=== PATIENT | female | born 1975 | race Hispanic/Latino ===

== ENCOUNTER → 2023-12-20 | Day surgery (SDC) | payer OTHER ==
[~2023-12-20] MED LIST: ACETAMINOPHEN 1000 MG/100 ML 100 ML IV ONE; BUPIVACAINE HCL 0.5% INJ 30 ML VIAL INJ ONE; DEXAMETHASONE SOD PHOS INJ 4 MG/ML SDV ONE; FENTANYL CITRATE/PF 100MCG/2 ML INJ ONE; KETOROLAC TROMETHAMINE 30 MG/ML VIAL ONE; LIDOCAINE HCL 2% LOCAL INJ 5 ML SDV VIAL INJ ONE; NEOSTIGMINE 1 MG/ML 10ML VIAL ONE; ONDANSETRON HCL INJ 2MG/ML 2ML 2 MG/ML VIAL ONE; PROPOFOL IV EMULSION 10 MG/ML 20 ML VIAL ONE; SEVOFLURANE INHAL SOLN 250 ML PEN BTL ONE
[2023-12-20] MEDS: LACTATED RINGER'S 1,000 ML ONE (06:41)
[2023-12-20 08:50] VITALS: TEMP 97
[2023-12-20 09:22] VITALS: BP 134/85; RESP 18; O2SAT 99
== END | disposition home or self-care (01) ==
LOC: OR 05:23
PROVIDERS: ATTEND Podiatrist Foot & Ankle Surgery
DX: M20.11 Hallux valgus (acquired), right foot (principal); K21.9 Gastro-esophageal reflux disease without esophagitis
CPT/HCPCS: 28297; 81025; C1713 ×2; J0131; J1100; J1885; J2001; J2405; J2704; J3010; J7121; J2710

== ENCOUNTER → 2024-05-15 | Day surgery (SDC) | payer OTHER ==
[2024-05-14 12:45] LABS: ANION GAP 14.7 mmol/L (8-16); CALCIUM 9.7 mg/dL (8.4-10.2); CREATININE, SERUM 0.78 mg/dL (0.57-1.11); POTASSIUM 3.7 mmol/L (3.5-5.1)
[~2024-05-15] MED LIST changes: -ACETAMINOPHEN 1000 MG/100 ML 100 ML IV ONE; +ACETAMINOPHEN 1000 MG/100 ML IV ONE; +CEFAZOLIN SODIUM 2 GM ONE; +DEXMEDETOMIDINE HCL 200 MCG/2 ML VIAL ONE; -KETOROLAC TROMETHAMINE 30 MG/ML VIAL ONE; +METOCLOPRAMIDE HCL 10 MG/2ML VIAL ONE; +MIDAZOLAM HCL 2 MG/2 ML VIAL ONE; -NEOSTIGMINE 1 MG/ML 10ML VIAL ONE; +SODIUM CHLORIDE 0.9% INJ 100 ML BAG ONE
[2024-05-15] MEDS: CEFAZOLIN SODIUM 2 GM ONE (06:52)
[2024-05-15] MEDS: LACTATED RINGER'S 1,000 ML ONE (06:53)
[2024-05-15 09:29] VITALS: TEMP 97.1
[2024-05-15 10:25] VITALS: BP 118/74; PULSE 67; RESP 15; O2SAT 99
== END | disposition home or self-care (01) ==
LOC: OR 06:00
PROVIDERS: ATTEND Podiatrist Foot & Ankle Surgery
DX: M20.12 Hallux valgus (acquired), left foot (principal); E66.01 Morbid (severe) obesity due to excess calories; Z01.810 Encounter for preprocedural cardiovascular examination; Z01.812 Encounter for preprocedural laboratory examination; Z01.818 Encounter for other preprocedural examination
CPT/HCPCS: 28297; 36415; 71046; 80048; 81025; 93005; C1713 ×2; J0131; J1100; J2001; J2250; J2405; J2704; J2765; J3010; J7050; J7121